=== PATIENT | male | born 1985 | race Caucasian/White ===

== ENCOUNTER 2017-04-09 19:15 | Emergency (ER) | payer OTHER ==
[2017-04-09 19:18] VITALS: Ht 177.8 cm
[2017-04-09] MEDS ORDERED: SODIUM CHLORIDE 0.9% 1000ML 2,000 ML IV STA (19:25)
[2017-04-09] MEDS ORDERED: FAMOTIDINE 20 MG TAB PO ONE (19:30)
[2017-04-09 19:33] LABS: BASO % 0.3 %; BASO ABS # 0.03 K/uL (0-0.2); EOS % 0.5 %; EOS ABS # 0.05 K/uL (0-0.5); HEMATOCRIT 41.9 % (42-52); IG# 0.02 K/uL (0.00-0.02); LYMPH % 14.6 %; LYMPH ABS # 1.41 K/uL (1.2-3.4); MEAN CELL VOLUME 85.5 fL (80-100); MEAN CORPUSCULAR HEMOGLOBIN 30.6 pg (25-34); MEAN CORPUSCULAR HGB CONC 35.8 g/dl (32-36); MONO % 5.4 %; MONO ABS # 0.52 K/uL (0.11-0.59); NEUT ABS # 7.64 K/uL (1.4-6.5); PLATELET COUNT 206 K/uL (130-400); RED CELL DISTRIBUTION WIDTH CV 12.4 % (11.5-14.5); RED CELL DISTRIBUTION WIDTH SD 38.8 fL (36.4-46.3); WHITE BLOOD COUNT 9.67 K/uL (4.8-10.8)
--- NOTE | 2017-04-09 19:34 | EMERGENCY ROOM VISIT NOTE ---
History Report prepared by Walter: Maciel Bravo Under the Supervision of: Dr. Jose Cruz Knapp M.D. First contact with patient: 19:17 Chief Complaint: CHEST PAIN Stated Complaint: CHEST PAIN History of Present Illness The patient is a 31 year old male who presents to the Emergency Room with complaints of persistent chest discomfort starting around 1600 today while working at the [employer]. He currently rates his discomfort as a 1/10 in severity. He states that he was feeling weird while walking around, and he was feeling light headed, dizzy, and he got this discomfort. He states that he saw first aid, and they noted that he had a high blood pressure of 170/90. Prior to today, the patient states that he has not had any fever, chills, headaches, burning with urination, nausea, and vomiting. He notes that he did have some diarrhea this week. The patient denies any smoking, family history of DC at a young age, history of clots in his lungs, history of cancer, recent surgery, recent long car rides or plane rides, and any chronic medical problems. The patient states that he has a family history of hypertension. He states that he occasionally drinks alcohol, he does not use drugs or other supplements, he does not have any history of anxiety or depressions, and he has never had a panic attack before. The patient notes that he has been drinking normally recently. Source of History: patient Onset: 1600 Position: chest Symptom Intensity: 1/10 Quality: other (discomfort) Timing: other (persistent) Associated Symptoms: + diarrhea, No fevers, No chills, No headache Note: Associated symptoms: light headed and dizzy Review of Systems See HPI for pertinent positives and negatives. A total of ten systems were reviewed and were otherwise negative. Family History Depression Hypertension Social History Marital Status: Occupation Status: employed Current/Historical Medications No Active Prescriptions or Reported Meds Allergies Coded Allergies: Amoxicillin (Unverified Allergy, Unknown, HIVES, 04/09/17) Physical Exam Vital Signs Date Time Temp Pulse Resp B/P (MAP) Pulse Ox O2 Delivery O2 Flow Rate FiO2 04/09/17 21:57 71 18 130/85 100 04/09/17 21:24 36.5 04/09/17 20:40 71 18 138/84 99 Room Air 04/09/17 19:25 Room Air 04/09/17 19:23 Room Air 04/09/17 19:20 100 04/09/17 19:18 92 18 154/89 99 Room Air Physical Exam GENERAL: Awake, alert, anxious-appearing, in no distress HENT: Normocephalic, atraumatic. Oropharynx unremarkable. Dry mucous membranes. EYES: Normal conjunctiva. Sclera non-icteric. NECK: Supple. No nuchal rigidity. FROM. No JVD. RESPIRATORY: Clear to auscultation. CARDIAC: Regular rate, normal rhythm. Extremities warm and well perfused. Pulses equal. ABDOMEN: Soft, non-distended. No tenderness to palpation. No rebound or guarding. No masses. RECTAL: Deferred. MUSCULOSKELETAL: Chest examination reveals no tenderness. The back is symmetrical on inspection without obvious abnormality. There is no CVA tenderness to palpation. No joint edema. LOWER EXTREMITIES: Calves are equal size bilaterally and non-tender. No edema. No discoloration. NEURO: Normal sensorium. No sensory or motor deficits noted. SKIN: No rash or jaundice noted. Medical Decision & Procedures ER Provider Diagnostic Interpretation: Radiology results as stated below per my review and radiologist interpretation: CHEST ONE VIEW PORTABLE HISTORY: 31 years-old Male CHEST PAIN acute atypical chest pain COMPARISON: None available TECHNIQUE: Portable AP view of the chest FINDINGS: Cardiomediastinal and hilar silhouettes are within normal limits. No pneumothorax, pleural effusion, focal airspace consolidation or overt pulmonary edema. The bones of the chest appear grossly intact. IMPRESSION: No acute process. The above report was generated using voice recognition software. It may contain grammatical, syntax or spelling errors. Electronically signed by: Daniel Gonsales M.D. 04/09/2017 7:40 PM Dictated Date/Time: 04/09/2017 7:39 PM Laboratory Results 04/09/17 19:24 Red Blood Count 4.90, Mean Corpuscular Volume 85.5, Mean Corpuscular Hemoglobin 30.6, Mean Corpuscular Hemoglobin Concent 35.8, Mean Platelet Volume 10.0, Neutrophils (%) (Auto) 79.0, Lymphocytes (%) (Auto) 14.6, Monocytes (%) (Auto) 5.4, Eosinophils (%) (Auto) 0.5, Basophils (%) (Auto) 0.3, Neutrophils # (Auto) 7.64, Lymphocytes # (Auto) 1.41, Monocytes # (Auto) 0.52, Eosinophils # (Auto) 0.05, Basophils # (Auto) 0.03 04/09/17 19:24 Test 04/09/17 19:24 White Blood Count 9.67 K/uL (4.8-10.8) Red Blood Count 4.90 M/uL (4.7-6.1) Hemoglobin 15.0 g/dL (14.0-18.0) Hematocrit 41.9 % (42-52) Mean Corpuscular Volume 85.5 fL (80-100) Mean Corpuscular Hemoglobin 30.6 pg (25-34) Mean Corpuscular Hemoglobin Concent 35.8 g/dl (32-36) Platelet Count 206 K/uL (130-400) Mean Platelet Volume 10.0 fL (7.4-10.4) Neutrophils (%) (Auto) 79.0 % Lymphocytes (%) (Auto) 14.6 % Monocytes (%) (Auto) 5.4 % Eosinophils (%) (Auto) 0.5 % Basophils (%) (Auto) 0.3 % Neutrophils # (Auto) 7.64 K/uL (1.4-6.5) Lymphocytes # (Auto) 1.41 K/uL (1.2-3.4) Monocytes # (Auto) 0.52 K/uL (0.11-0.59) Eosinophils # (Auto) 0.05 K/uL (0-0.5) Basophils # (Auto) 0.03 K/uL (0-0.2) RDW Standard Deviation 38.8 fL (36.4-46.3) RDW Coefficient of Variation 12.4 % (11.5-14.5) Immature Granulocyte % (Auto) 0.2 % Immature Granulocyte # (Auto) 0.02 K/uL (0.00-0.02) Anion Gap 8.0 mmol/L (3-11) Estimated GFR () 102.3 Estimated GFR (Non- 88.3 BUN/Creatinine Ratio 14.6 (10-20) Calcium Level 9.0 mg/dl (8.5-10.1) Magnesium Level 2.2 mg/dl (1.8-2.4) Total Bilirubin 0.7 mg/dl (0.2-1) Direct Bilirubin 0.2 mg/dl (0-0.2) Aspartate Amino Transf (AST/SGOT) 21 U/L (15-37) Alanine Aminotransferase (ALT/SGPT) 41 U/L (12-78) Alkaline Phosphatase 44 U/L (45-117) Troponin I < 0.015 ng/ml (0-0.045) Total Protein 8.6 gm/dl (6.4-8.2) Albumin 4.5 gm/dl (3.4-5.0) Lipase 164 U/L (73-393) Thyroid Stimulating Hormone (TSH) 1.710 uIu/ml (0.300-4.500) Laboratory results reviewed by me Medications Administered Medications (Trade) Dose Ordered Sig/Sagar Route Start Time Stop Time Status Last Admin Dose Admin Sodium Chloride 2,000 ml @ 999 mls/hr Q2H1M STAT IV 04/09/17 19:25 04/09/17 21:25 DC 04/09/17 19:42 999 MLS/HR Famotidine (Pepcid Tab) 20 mg NOW ONCE PO 04/09/17 19:30 04/09/17 19:31 DC 04/09/17 19:41 20 MG ECG Per My Interpretation Indication: chest pain Rate (beats per minute): 80 Rhythm: normal sinus Findings: no acute ischemic change, other (Normal axis) ED Course 1916: The patient was evaluated in room B12. A complete history and physical exam was performed. 2036: I reevaluated the patient. Discussed results and discharge instructions: he verbalized understanding and agreement. The patient is ready for discharge. Medical Decision I reviewed the patient's past medical history, medications, and the nursing notes as described above. Differential diagnosis: Etiologies such as cardiac ischemia, aortic dissection, pulmonary embolism, pneumonia, pneumothorax, musculoskeletal, infections, pericarditis, myocarditis , esophageal rupture, gastrointestinal, as well as others were entertained. 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 While the patient is anxious appearing but no acute distress, afebrile stable vital signs. He reports some residual chest pressure but nothing like it was earlier. EKG is unremarkable without acute ischemia. Troponin negative 3.5 hours after onset of symptoms. Labs otherwise unremarkable including WBC within normal limits. Chest x-ray negative. Patient feeling improved after IV fluid hydration and Pepcid. Unclear etiology of the patient's symptoms. The patient did improve with H2 radha he denies having eaten anything prior to the onset of symptoms making this less clear. However, heart score is 1, low risk, therefore ACS unlikely. PE also unlikely given the patient denies any pleuritic symptoms, as well as HR improved with IVF. No hypoxia. Denies tearing pain. Pulses equal. No family hx of aortic disease or connective tissue disease. Thus Dissection not likely. Findings and plan for follow-up reviewed with patient. Patient agreeable and d/c'd per discharge instructions. Medication Reconcilliation Current Medication List: was personally reviewed by me Blood Pressure Screening Patient's blood pressure: Elevated blood pressure Blood pressure disposition: Elevated BP felt to be situational Impression Primary Impression: Substernal precordial chest pain Scribe Attestation The scribe's documentation has been prepared under my direction and personally reviewed by me in its entirety. I confirm that the note above accurately reflects all work, treatment, procedures, and medical decision making performed by me. Departure Information Dispostion Home / Self-Care Prescriptions No Active Prescriptions or Reported Meds Referrals No Doctor, Assigned (PCP) Forms HOME CARE DOCUMENTATION FORM, IMPORTANT VISIT INFORMATION Patient Instructions ED Chest Pain Atypical Unkn Cause, My [facility] Additional Instructions Please follow up with your primary care physician in the next 1-3 days for re- evaluation. The cause of your symptoms is unclear at this time. However, your exam, EKG, chest xray, and lab results did not show signs of an emergent condition at this time. Drink plenty of fluids to ensure hydration. Return to the emergency department for worsening symptoms as described in the accompanying instructions.
--- NOTE | 2017-04-09 19:41 | DIAGNOSTIC IMAGING REPORT ---
CHEST ONE VIEW PORTABLE HISTORY: 31 years-old Male CHEST PAIN acute atypical chest pain COMPARISON: None available TECHNIQUE: Portable AP view of the chest FINDINGS: Cardiomediastinal and hilar silhouettes are within normal limits. No pneumothorax, pleural effusion, focal airspace consolidation or overt pulmonary edema. The bones of the chest appear grossly intact. IMPRESSION: No acute process. The above report was generated using voice recognition software. It may contain grammatical, syntax or spelling errors. Electronically signed by: Daniel Gonsales M.D. 04/09/2017 7:40 PM Dictated Date/Time: 04/09/2017 7:39 PM
[2017-04-09 19:49] LABS: ALBUMIN 4.5 gm/dl (3.4-5.0); ALT/SGPT 41 U/L (12-78); AST/SGOT 21 U/L (15-37); BLOOD UREA NITROGEN 16 mg/dl (7-18); CARBON DIOXIDE 26 mmol/L (21-32); CREATININE 1.12 mg/dl (0.60-1.40); GLUCOSE 100 mg/dl (70-99); LIPASE 164 U/L (73-393); POTASSIUM 3.8 mmol/L (3.5-5.1); SODIUM 138 mmol/L (136-145)
[2017-04-09 20:01] LABS: ALKALINE PHOSPHATASE 44 U/L (45-117); TOTAL PROTEIN 8.6 gm/dl (6.4-8.2)
[2017-04-09 21:24] VITALS: TEMP 36.5
[2017-04-09 21:57] VITALS: BP 130/85; PULSE 71; O2SAT 100
== END 2017-04-09 21:58 | disposition home or self-care (01) ==
LOC: EDBD 19:15 → C.EDB 19:17
DX: R07.2 Precordial pain (principal); Z82.49 Family history of ischemic heart disease and other diseases of the circulatory system; Z81.8 Family history of other mental and behavioral disorders; Z88.0 Allergy status to penicillin